=== PATIENT | female | born 1955 | race Caucasian/White ===

== ENCOUNTER 2021-06-24 12:23 | Outpatient (CLI) | payer MEDICARE, OTHER ==
[2021-06-25 12:35] LABS: SARS-CoV-2 PCR by NAA Not Detected (NotDetected)
== END 2021-06-24 12:24 | disposition home or self-care (01) ==
LOC: CSHLAB 12:23
PROVIDERS: ATTEND Internal Medicine Gastroenterology
DX: Z20.822 Contact with and (suspected) exposure to COVID-19 (principal); K63.5 Polyp of colon
CPT/HCPCS: U0003; U0005

== ENCOUNTER 2021-06-27 08:14 | Day surgery (SDC) | payer MEDICARE, OTHER ==
[2021-06-25 11:34] VITALS: BMI 38.4
[2021-06-27] MEDS ORDERED: PROPOFOL 40 ML ONE (08:28)
[2021-06-27] MEDS ORDERED: Lidocaine 1% MPF 2 ML VIAL ONE (09:31)
== END 2021-06-27 11:45 | disposition home or self-care (01) ==
LOC: CSHSDC 08:14
PROVIDERS: ATTEND Internal Medicine Gastroenterology
PROC: 0DBK8ZZ Excision of Ascending Colon, Via Natural or Artificial Opening Endoscopic (ICD-10-PCS; principal; 2021-06-27)
DX: Z12.11 Encounter for screening for malignant neoplasm of colon (principal); D12.2 Benign neoplasm of ascending colon; Z80.0 Family history of malignant neoplasm of digestive organs; K64.9 Unspecified hemorrhoids; E78.5 Hyperlipidemia, unspecified; F41.9 Anxiety disorder, unspecified; F32.A Depression, unspecified; K21.9 Gastro-esophageal reflux disease without esophagitis; Z87.891 Personal history of nicotine dependence
CPT/HCPCS: 88305; J2704